=== PATIENT | female | born 1940 | race Caucasian/White ===

== ENCOUNTER 2018-01-11 07:24 | Emergency (ER) | payer OTHER ==
[~2018-01-11] VITALS: Ht 167.6 cm; Wt 90.7 kg
== END 2018-01-11 11:22 | disposition home or self-care (01) ==
LOC: ER 07:24
DX: K29.60 Other gastritis without bleeding (principal)

== ENCOUNTER 2018-03-04 07:33 | Emergency (ER) | payer OTHER ==
[~2018-03-04] VITALS: Ht 167.6 cm; Wt 83.9 kg
[2018-03-04] MEDS ORDERED: ZOFRAN8 MG PO (14:36)
[2018-03-04] MEDS ORDERED: CIPRO500 MG PO (14:36)
[2018-03-04] MEDS ORDERED: PEPCID20 MG PO (14:36)
[2018-03-04] MEDS ORDERED: INTESTINEX680 M1 PO (14:36)
== END 2018-03-04 14:57 | disposition home or self-care (01) ==
LOC: ER 07:33
DX: R10.13 Epigastric pain (principal)

== ENCOUNTER 2018-12-16 17:51 | Emergency (ER) | payer OTHER ==
[~2018-12-16] VITALS: Ht 167.6 cm; Wt 60.8 kg
[~2018-12-16 17:51] MED LIST: CIPRO500 MG PO; INTESTINEX680 M1 PO; PEPCID20 MG PO; ZOFRAN8 MG PO
[2018-12-17] MEDS ORDERED: BACTRIM DS TAB1 EACH (10:39)
== END 2018-12-17 21:58 | disposition home or self-care (01) ==
LOC: ER 17:51
DX: C78.7 Secondary malignant neoplasm of liver and intrahepatic bile duct (principal); D49.59 Neoplasm of unspecified behavior of other genitourinary organ; N83.292 Other ovarian cyst, left side; R10.84 Generalized abdominal pain; C18.9 Malignant neoplasm of colon, unspecified; K80.80 Other cholelithiasis without obstruction; R16.1 Splenomegaly, not elsewhere classified

== ENCOUNTER → 2018-12-17 | Emergency (ER) | payer OTHER ==
[~2018-12-17] VITALS: Ht 167.6 cm; Wt 60.8 kg
[~2018-12-17] MED LIST changes: +BACTRIM DS TAB1 EACH
== END | disposition home or self-care (01) ==
LOC: ER 10:23
DX: C79.61 Secondary malignant neoplasm of right ovary (principal)

== ENCOUNTER 2019-01-12 23:59 | Emergency (ER) | payer OTHER ==
[~2019-01-12] VITALS: Ht 167.6 cm; Wt 55.8 kg
== END 2019-01-13 14:05 | disposition home or self-care (01) ==
LOC: ER 23:59
DX: N39.0 Urinary tract infection, site not specified (principal); N93.8 Other specified abnormal uterine and vaginal bleeding